=== PATIENT | male | born 1990 | race Caucasian/White ===

== ENCOUNTER 2025-01-27 13:55 | Emergency (ER) | payer OTHER ==
[~2025-01-27] VITALS: Ht 182.9 cm; Wt 136.4 kg
[2025-01-27 14:07] VITALS: BP 131/89; PULSE 70; RESP 16; TEMP 98.2; O2SAT 98
[2025-01-27] MEDS: LIDOCAINE 5% TRANSDERMAL PATCH TD ONE (15:05)
[2025-01-27] MEDS: KETOROLAC TROMETHAMINE 30 MG/ML VIAL IM ONE (15:06)
[2025-01-27] MEDS ORDERED: LIDO-57 TP (17:00)
[2025-01-27] MEDS ORDERED: METH-659 PO (17:00)
[2025-01-27] MEDS ORDERED: IBUP-1492 PO (17:00)
== END 2025-01-27 17:15 | disposition home or self-care (01) ==
LOC: EMS 13:55
DX: S16.1XXA Strain of muscle, fascia and tendon at neck level, initial encounter (principal); S46.911A Strain of unspecified muscle, fascia and tendon at shoulder and upper arm level, right arm, initial encounter; I10 Essential (primary) hypertension; Z90.89 Acquired absence of other organs; W01.0XXA Fall on same level from slipping, tripping and stumbling without subsequent striking against object, initial encounter; Y93.01 Activity, walking, marching and hiking; Y92.89 Other specified places as the place of occurrence of the external cause; Y99.8 Other external cause status
CPT/HCPCS: 99285; 72125; 73030; 72128; 96372; J1885